=== PATIENT | male | born 1980 | race American Indian/Alaskan Native ===

== ENCOUNTER 2021-11-16 12:53 | Emergency (ER) | payer OTHER ==
[2021-11-16 13:02] VITALS: BP 124/94; PULSE 98; RESP 18; TEMP 97.9; BMI 24.2
== END 2021-11-16 14:05 | disposition home or self-care (01) ==
LOC: JERFT 12:53
DX: Z48.02 Encounter for removal of sutures (principal)
CPT/HCPCS: 99281-25